=== PATIENT | male | born 1955 | race Two or more races ===

== ENCOUNTER 2018-11-17 12:40 | Emergency (ER) | payer SELFPAY ==
[~2018-11-17] VITALS: Ht 172.7 cm; Wt 79.4 kg
[2018-11-17 12:48] VITALS: BP 162/95
[2018-11-17] MEDS ORDERED: TETRACAINE HCL/PF 0.5% UD 2 ML BOTTLE RIGHTEYE ONE (13:00)
[2018-11-17] MEDS ORDERED: FLUORESCEIN SODIUM OPHTH 1 EA STRIP OP ONE (13:00)
--- NOTE | 2018-11-17 13:15 | NUR ---
PT RECEIVED A&0X3, TOLERATING ROOM AIR WITHOUT DISTRESS AND REPORTING TINGLING SENSATION WHERE A REPORTED CHEMICAL HAD SPILT ON R EYE AND CHEST. PT SEEN BY MD, POC DISCUSSED WITH PT AND PT REFUSING, MD EXPLAINED RISKS AND PT VERBALZING UNDERSTANDING BUT REMAINS REQUESTING TO LEAVE AMA. PT PROVIDED WITH [facility] D/C EDUCATION AND REFEREALS, REQUESTED NOT TO DRIVE, PT SIGNED AMA.
== END 2018-11-17 13:30 | disposition left against medical advice (07) ==
LOC: ER 12:44
DX: H53.8 Other visual disturbances (principal); Z77.098 Contact with and (suspected) exposure to other hazardous, chiefly nonmedicinal, chemicals
CPT/HCPCS: 99281; A4606; J7030; Z7610; Z7502